=== PATIENT | male | born 1950 | race Caucasian/White ===

== ENCOUNTER → 2016-10-02 | Outpatient (CLI) | payer OTHER ==
[~2016-10-02] MED LIST: IOPAMIDOL (ISOVUE-300) 100 ML BTL IV ONE
[2016-10-02 14:32] LABS: GLOMERULAR FILTRATION RATE > 60
== END ==
LOC: FIMAGING 13:50
PROVIDERS: ATTEND Urology
DX: N32.89 Other specified disorders of bladder (principal); R31.9 Hematuria, unspecified; M43.16 Spondylolisthesis, lumbar region
CPT/HCPCS: 74178; Q9967